=== PATIENT | male | born 1980 | race Hispanic/Latino ===

== ENCOUNTER 2024-11-11 13:59 | Inpatient (IN) | payer BC ==
[~2024-11-11 13:59] MED LIST: Iopamidol-370 76% 500 ML MDV (1 ML CHARGE) ONE
[2024-11-11] MEDS ORDERED: Ondansetron PF 4 MG/2 ML Vial ONE (14:39)
[2024-11-11] MEDS ORDERED: Pantoprazole 40 MG VIAL ONE (14:39)
[2024-11-11] MEDS ORDERED: Morphine 10 MG/ML VIAL ONE (14:39)
[2024-11-11 14:56] LABS: #Basophils 0.06 10x3/uL (0.0-0.2); %Basophils 0.4 % (0.0-1.0); %Eosinophils 0.7 % (0.0-10.0); %Lymphocytes 12.4 % (21.0-51.0); %Monocytes 8.4 % (0.0-10.0); %Neutrophils 76.4 % (42.0-75.0); Hematocrit 43.3 % (42.0-52.0); Mean Corpuscular HGB CONC 34.6 g/dL (32.0-36.0); Mean Corpuscular Hemoglobin 29.4 pg (27.0-31.0); Mean Corpuscular Volume 84.9 fL (78.0-98.0); Mean Platelet Volume 11.6 fL (7.4-10.4); Platelet Count 348 10x3/uL (130-400); RBC Distribution Width 12.7 % (11.5-14.5)
[2024-11-11 15:14] LABS: ALT (SGPT) 63 U/L (Less than 45); AST (SGOT) 32 U/L (11-34); Albumin 2.9 g/dL (3.1-4.5); Alkaline Phosphatase 101 U/L (40-110); Anion Gap 21 mmol/L (10-20); BUN (Urea Nitrogen) 81 mg/dL (8.9-20.6); Bilirubin, Total 1.1 mg/dL (0.3-1.2); Calc. Creatinine Clearance 0 mL/min (70-130); Calcium 8.6 mg/dL (7.8-10.44); Carbon Dioxide 26 mmol/L (22-29); Chloride 86 mmol/L (98-107); Estimated GFR 15; Globulin 4.8 g/dL (2.4-3.5); Glucose 145 mg/dL (70-105); Lipase 81 U/L (8-78); Protein, Total 7.7 g/dL (6.0-8.3); Sodium 130 mmol/L (136-145)
[2024-11-11 15:22] LABS: Troponin I 0.019 ng/mL (< 0.028)
[2024-11-11] MEDS ORDERED: traMADol HCl 50 MG TAB PO PRN (16:05)
[2024-11-11] MEDS ORDERED: Sodium Chloride 0.9% 100 ML ONE (16:09)
[2024-11-11] MEDS ORDERED: Piperacillin/Tazobactam 4.5 GM VIAL ONE (16:09)
[2024-11-11] MEDS ORDERED: Benzocaine 20% Spray 60 ML CAN ONE (16:42)
[2024-11-11] MEDS: Lactated Ringer's 1,000 ML IV SCH (18:45)
[2024-11-11] MEDS: Acetaminophen 325 MG TAB PO SCH (18:45)
[2024-11-11] MEDS: Sodium Chloride 0.9% 1,000 ML IV SCH (18:45)
[2024-11-11] MEDS: Morphine 2 MG/ML VIAL SLOW IVP PRN (20:31)
[2024-11-11] MEDS: Potassium Chloride 20 MEQ in Premix 1 BAG IVPB SCH (20:32)
[2024-11-11] MEDS: traMADol HCl 50 MG TAB PO SCH (20:33)
[2024-11-11 22:34] VITALS: BMI 39.9
[2024-11-12 05:12] LABS: #Basophils 0.05 10x3/uL (0.0-0.2); %Basophils 0.4 % (0.0-1.0); %Eosinophils 1.3 % (0.0-10.0); %Lymphocytes 17.2 % (21.0-51.0); %Monocytes 8.6 % (0.0-10.0); %Neutrophils 71.7 % (42.0-75.0); Hemoglobin 13.1 g/dL (14.0-18.0); Mean Corpuscular HGB CONC 34.5 g/dL (32.0-36.0); Mean Corpuscular Hemoglobin 30.3 pg (27.0-31.0); Mean Platelet Volume 11.8 fL (7.4-10.4); Platelet Count 300 10x3/uL (130-400); RBC Distribution Width 13.2 % (11.5-14.5); Red Blood Cell (RBC) Count 4.32 mill/uL (4.70-6.10)
[2024-11-12 05:25] LABS: Phosphorus 4.4 mg/dL (2.5-4.5)
[2024-11-12 05:28] LABS: Anion Gap 15 mmol/L (10-20); BUN (Urea Nitrogen) 71 mg/dL (8.9-20.6); Calc. Creatinine Clearance 49 mL/min (70-130); Calcium 8.3 mg/dL (7.8-10.44); Carbon Dioxide 28 mmol/L (22-29); Chloride 98 mmol/L (98-107); Estimated GFR 22; Glucose 92 mg/dL (70-105); Magnesium 2.1 mg/dL (1.6-2.6); Potassium 3.2 mmol/L (3.5-5.1); Sodium 138 mmol/L (136-145)
[2024-11-12] MEDS: Potassium Chloride 20 MEQ in Premix 1 BAG IVPB SCH (08:15)
[2024-11-12] MEDS: Benzocaine 20% Spray 60 ML CAN PO SCH (16:56)
[2024-11-12] MEDS ORDERED: Benzocaine/Menthol 1 LOZ LOZ PO PRN (17:27)
[2024-11-12] MEDS ORDERED: Phenol 177 ML BOT PO PRN (20:20)
[2024-11-13] MEDS ORDERED: MD-Gastroview 120 ML BOT ONE ×2 (09:54→10:28)
[2024-11-13] MEDS: Ondansetron PF 4 MG/2 ML Vial IVP PRN (15:31)
[2024-11-14 01:28] LABS: #Basophils 0.05 10x3/uL (0.0-0.2); #Eosinophils Less than 0.03 10x3/uL (0.0-0.7); %Basophils 0.2 % (0.0-1.0); %Eosinophils 0.1 % (0.0-10.0); %Lymphocytes 5.5 % (21.0-51.0); %Neutrophils 87.6 % (42.0-75.0); Hematocrit 42.9 % (42.0-52.0); Hemoglobin 14.2 g/dL (14.0-18.0); Mean Corpuscular HGB CONC 33.1 g/dL (32.0-36.0); Mean Corpuscular Hemoglobin 29.5 pg (27.0-31.0); Mean Corpuscular Volume 89.2 fL (78.0-98.0); Mean Platelet Volume 11.4 fL (7.4-10.4); Platelet Count 328 10x3/uL (130-400); RBC Distribution Width 13.2 % (11.5-14.5); Red Blood Cell (RBC) Count 4.81 mill/uL (4.70-6.10)
[2024-11-14 01:37] LABS: Actual Bicarbonate (HCO3v) 29.6 mEq/L (22-28); Analyzer IN Cardio ER; Base Excess 8.1 mEq/L (-2.0 to +3.0); Calcium, Ionized (venous) 1.02 mmol/L (1.16-1.32); Chloride (VBG) 101 mmol/L (98-106); Hematocrit-VBG 44 % (42.0-52.0); Hemoglobin (Hb) 14.9 g/dL (13.2-17.3); Potassium (VBG) 3.25 mmol/L (3.70-5.30); Sodium 148 mmol/L (133-146); pH (venous) 7.587 (7.32-7.43)
[2024-11-14 01:46] LABS: ALT (SGPT) 35 U/L (Less than 45); AST (SGOT) 23 U/L (11-34); Albumin 2.9 g/dL (3.1-4.5); Alkaline Phosphatase 88 U/L (40-110); Anion Gap 23 mmol/L (10-20); BUN (Urea Nitrogen) 36 mg/dL (8.9-20.6); Bilirubin, Total 0.7 mg/dL (0.3-1.2); Calc. Creatinine Clearance 85 mL/min (70-130); Calcium 9.1 mg/dL (7.8-10.44); Carbon Dioxide 29 mmol/L (22-29); Chloride 100 mmol/L (98-107); Estimated GFR 43; Globulin 4.7 g/dL (2.4-3.5); Glucose 103 mg/dL (70-105); Lactic Acid 0.77 mmol/L (0.50-2.20); Magnesium 1.9 mg/dL (1.6-2.6); Potassium 3.1 mmol/L (3.5-5.1); Protein, Total 7.6 g/dL (6.0-8.3); Sodium 149 mmol/L (136-145)
[2024-11-14] MEDS: Potassium Chloride 20 MEQ in Premix 1 BAG IVPB SCH (02:46)
[2024-11-14] MEDS: Piperacillin/Tazobactam 3.375 GM in Sodium Chloride 0.9% 100 ML IVPB SCH ×2 (02:46→06:15)
[2024-11-14] MEDS: Metoprolol Tartrate 5 MG (5 mL) VIAL IVP SCH (09:08)
[2024-11-14] MEDS: Potassium Chloride 20 MEQ in Lactated Ringer's 1,000 ML IV SCH (09:08)
[2024-11-14] MEDS ORDERED: Heparin 10,000 UNITS/ 10 ML VIAL SLOW IVP SCH (09:15)
[2024-11-14] MEDS ORDERED: Heparin 25,000 units/D5W 500 ML IVPB SCH (09:15)
[2024-11-14] MEDS: Enoxaparin 40 MG (0.4 mL) SYRINGE SC SCH (10:12)
[2024-11-14] MEDS ORDERED: fentaNYL PF 100 MCG/2 ML SYRINGE ONE (12:27)
[2024-11-14] MEDS ORDERED: PROPOFOL 20 ML ONE (12:27)
[2024-11-14] MEDS ORDERED: Midazolam HCl 2 mg/2 ml Vial ONE ×2 (12:28→12:32)
[2024-11-14] MEDS ORDERED: Rocuronium Bromide 10 MG/ML (10ML VIAL) ONE (12:29)
[2024-11-14] MEDS ORDERED: SUCCINYLCHOLINE/SOD CL,ISO/PF 200 MG/10 ML SYRINGE FS ONE (12:29)
[2024-11-14] MEDS ORDERED: Lidocaine 1% PF 5 ML VIAL ONE (12:30)
[2024-11-14] MEDS ORDERED: Ondansetron PF 4 MG/2 ML Vial ONE (12:53)
[2024-11-14] MEDS ORDERED: Dexamethasone 20 MG/5 ML VIAL ONE (12:53)
[2024-11-14] MEDS ORDERED: PHENYLEPHRINE-NS 100 MCG/ML 10 ML SYRINGE ONE (13:00)
[2024-11-14] MEDS ORDERED: Bupivacaine PF 0.5% 30 ML VIAL ONE (13:19)
[2024-11-14] MEDS ORDERED: EPINEPHrine 1 MG/ML VIAL ONE (13:19)
[2024-11-14] MEDS ORDERED: Iopamidol 370 76% 100 ML VIAL ONE (13:46)
[2024-11-14] MEDS ORDERED: HYDROmorphone 2 MG/ML VIAL SLOW IVP PRN (14:08)
[2024-11-14] MEDS ORDERED: Promethazine HCl 25 MG/ML VIAL IM PRN (14:08)
[2024-11-14] MEDS ORDERED: Ondansetron HCl/PF 4 MG/2 ML Vial IVP PRN (14:08)
[2024-11-14] MEDS ORDERED: SUGAMMADEX SODIUM 200 MG/2 ML VIAL ONE (14:10)
[2024-11-14] MEDS ORDERED: Metoprolol Tartrate 5 MG (5 mL) VIAL ONE (14:47)
[2024-11-14] MEDS ORDERED: Piperacillin/Tazobactam 3.375 GM VIAL ONE (14:54)
[2024-11-14] MEDS ORDERED: Sodium Chloride 0.9% 100 ML ONE (14:55)
[2024-11-14 18:35] LABS: Hematocrit 38.7 % (42.0-52.0); Hemoglobin 12.6 g/dL (14.0-18.0); Platelet Count 268 10x3/uL (130-400)
[2024-11-14] MEDS: Morphine 4 MG/ML VIAL SLOW IVP PRN (20:27)
[2024-11-14] MEDS: Enoxaparin 120 MG/0.8 ML SYRINGE SC SCH (20:27)
[2024-11-15 04:36] LABS: #Basophils 0.05 10x3/uL (0.0-0.2); %Basophils 0.3 % (0.0-1.0); %Eosinophils 0.2 % (0.0-10.0); %Lymphocytes 10.6 % (21.0-51.0); %Monocytes 6.7 % (0.0-10.0); %Neutrophils 81.5 % (42.0-75.0); Hematocrit 39.7 % (42.0-52.0); Hemoglobin 12.4 g/dL (14.0-18.0); Mean Corpuscular HGB CONC 31.2 g/dL (32.0-36.0); Mean Corpuscular Hemoglobin 29.7 pg (27.0-31.0); Mean Corpuscular Volume 95.2 fL (78.0-98.0); Mean Platelet Volume 11.1 fL (7.4-10.4); Platelet Count 274 10x3/uL (130-400); Red Blood Cell (RBC) Count 4.17 mill/uL (4.70-6.10)
[2024-11-15 05:40] LABS: Anion Gap 18 mmol/L (10-20); BUN (Urea Nitrogen) 31 mg/dL (8.9-20.6); Calc. Creatinine Clearance 85 mL/min (70-130); Calcium 7.7 mg/dL (7.8-10.44); Carbon Dioxide 32 mmol/L (22-29); Chloride 111 mmol/L (98-107); Estimated GFR 45; Glucose 90 mg/dL (70-105); Magnesium 1.9 mg/dL (1.6-2.6); Potassium 3.7 mmol/L (3.5-5.1); Sodium 157 mmol/L (136-145)
[2024-11-15] MEDS ORDERED: CEFAZOLIN 2 GM in Sodium Chloride 0.9% 100 ML IVPB SCH (09:00)
[2024-11-15] MEDS: 1/2 NS w/Potassium 20 mEq 1,000 ML IV SCH (09:52)
[2024-11-15] MEDS ORDERED: Bupivacaine 0.25% HCL 30 ML VIAL ONE (11:33)
[2024-11-15] MEDS ORDERED: EPINEPHrine 1 MG/ML VIAL ONE (11:33)
[2024-11-15 11:53] LABS: Anion Gap 19 mmol/L (10-20); BUN (Urea Nitrogen) 26 mg/dL (8.9-20.6); Calc. Creatinine Clearance 104 mL/min (70-130); Calcium 7.9 mg/dL (7.8-10.44); Carbon Dioxide 29 mmol/L (22-29); Chloride 112 mmol/L (98-107); Estimated GFR 57; Glucose 89 mg/dL (70-105); Potassium 3.7 mmol/L (3.5-5.1); Sodium 156 mmol/L (136-145)
[2024-11-15 14:29] VITALS: BMI 38.5
[2024-11-15] MEDS: Dextrose 5% in Water 1,000 ML IV SCH (15:07)
[2024-11-15] MEDS: Enoxaparin 120 MG/0.8 ML SYRINGE SC SCH (20:42)
[2024-11-15 21:58] LABS: Sodium 147 mmol/L (136-145)
[2024-11-16 05:11] LABS: #Basophils 0.05 10x3/uL (0.0-0.2); %Basophils 0.5 % (0.0-1.0); %Eosinophils 2.6 % (0.0-10.0); %Lymphocytes 19.3 % (21.0-51.0); %Neutrophils 70.1 % (42.0-75.0); Hematocrit 37.3 % (42.0-52.0); Hemoglobin 11.8 g/dL (14.0-18.0); Mean Corpuscular HGB CONC 31.6 g/dL (32.0-36.0); Mean Corpuscular Hemoglobin 29.6 pg (27.0-31.0); Mean Corpuscular Volume 93.7 fL (78.0-98.0); Mean Platelet Volume 11.6 fL (7.4-10.4); Platelet Count 242 10x3/uL (130-400); RBC Distribution Width 13.7 % (11.5-14.5); Red Blood Cell (RBC) Count 3.98 mill/uL (4.70-6.10)
[2024-11-16 05:21] LABS: Anion Gap 15 mmol/L (10-20); BUN (Urea Nitrogen) 22 mg/dL (8.9-20.6); Calc. Creatinine Clearance 129 mL/min (70-130); Carbon Dioxide 26 mmol/L (22-29); Chloride 108 mmol/L (98-107); Estimated GFR 74; Glucose 96 mg/dL (70-105); Potassium 3.5 mmol/L (3.5-5.1); Sodium 145 mmol/L (136-145)
[2024-11-16] MEDS ORDERED: EPINEPHrine 1 MG/ML VIAL ONE (07:19)
[2024-11-16] MEDS ORDERED: Bupivacaine PF 0.5% 30 ML VIAL ONE (07:20)
[2024-11-16] MEDS ORDERED: fentaNYL PF 100 MCG/2 ML SYRINGE ONE (09:09)
[2024-11-16] MEDS ORDERED: PROPOFOL 40 ML ONE (09:10)
[2024-11-16] MEDS ORDERED: Ondansetron HCl/PF 4 MG/2 ML Vial IVP PRN (09:13)
[2024-11-16] MEDS ORDERED: HYDROmorphone 2 MG/ML VIAL SLOW IVP PRN (09:13)
[2024-11-16] MEDS ORDERED: Promethazine HCl 25 MG/ML VIAL IM PRN (09:13)
[2024-11-16] MEDS ORDERED: Rocuronium Bromide 10 MG/ML (10ML VIAL) ONE (09:14)
[2024-11-16] MEDS ORDERED: Ondansetron PF 4 MG/2 ML Vial ONE ×2 (09:14→10:07)
[2024-11-16] MEDS ORDERED: Dexamethasone 4 mg/ml Vial ONE ×2 (09:14→10:07)
[2024-11-16] MEDS ORDERED: Esmolol 100 MG/10 ML VIAL ONE (09:23)
[2024-11-16] MEDS ORDERED: SUGAMMADEX SODIUM 200 MG/2 ML VIAL ONE (09:35)
[2024-11-16] MEDS ORDERED: PHENYLEPHRINE-NS 100 MCG/ML 10 ML SYRINGE ONE (10:03)
[2024-11-16] MEDS ORDERED: Lidocaine 2% PF 5 ML VIAL ONE (10:03)
[2024-11-16] MEDS ORDERED: CEFAZOLIN 1 GM VIAL ONE (10:03)
[2024-11-16] MEDS ORDERED: fentaNYL 50 mcg/mL 1 mL Vial ONE ×2 (11:43→13:18)
[2024-11-16] MEDS ORDERED: Phenol 177 ML BOT ONE (12:27)
[2024-11-16] MEDS ORDERED: Metoprolol Tartrate 5 MG (5 mL) VIAL ONE (12:40)
[2024-11-16] MEDS ORDERED: HYDROmorphone 0.5 MG/0.5 ML SYRINGE ONE (13:21)
[2024-11-16] MEDS: traMADol HCl 50 MG TAB PO SCH (14:18)
[2024-11-16] MEDS: Acetaminophen 500 MG TAB PO SCH ×2 (14:18→16:08)
[2024-11-16 15:18] LABS: Sodium 145 mmol/L (136-145)
[2024-11-16] MEDS ORDERED: hydrALAZINE 20 MG/ML VIAL SLOW IVP PRN (15:37)
[2024-11-16] MEDS: Amlodipine 5 MG TAB PO SCH (16:09)
[2024-11-16] MEDS ORDERED: CEFAZOLIN 2 GM in Sodium Chloride 0.9% 100 ML IVPB SCH (17:00)
[2024-11-16 17:21] LABS: INR-International Normal Ratio 1.1; PTT 28.6 sec (22.9-36.1); Prothrombin Time 14.5 sec (12.0-14.7)
[2024-11-16 17:23] LABS: D-Dimer Test 2.06 mcg/mL (0.27-0.43)
[2024-11-16] MEDS ORDERED: traMADol HCl 50 MG TAB PO PRN (20:00)
[2024-11-16] MEDS: Methylcellulose 500 MG TAB PO SCH (20:58)
[2024-11-16] MEDS: Enoxaparin 40 MG (0.4 mL) SYRINGE SC SCH (20:58)
[2024-11-17 08:19] LABS: Anion Gap 13 mmol/L (10-20); BUN (Urea Nitrogen) 18 mg/dL (8.9-20.6); Calc. Creatinine Clearance 144 mL/min (70-130); Calcium 7.6 mg/dL (7.8-10.44); Carbon Dioxide 24 mmol/L (22-29); Chloride 110 mmol/L (98-107); Estimated GFR 84; Glucose 99 mg/dL (70-105); Potassium 3.6 mmol/L (3.5-5.1); Sodium 143 mmol/L (136-145)
[2024-11-17] MEDS: Amlodipine 5 MG TAB PO SCH (08:54)
[2024-11-17] MEDS: Polyethylene Glycol 3350 17 GM Packet PO SCH (08:55)
[2024-11-17 12:58] VITALS: TEMP 99.1
[2024-11-17 15:49] VITALS: BP 147/94
[2024-11-19 12:56] LABS: Cardiolipin IgA Ab 5.7 APL-U/mL (<14 Negative); Cardiolipin IgG Ab 2.8 GPL-U/mL (<10 Negative); EliA APS New Method **** NEW METHOD ****
== END 2024-11-17 15:49 | disposition home or self-care (01) | DRG 329 ==
LOC: ERS 13:59 → SURG A 16:44 → 2NO 11-14 02:02 → SURG A 11-16 12:24 → SURG B 11-16 14:42
PROVIDERS: ADMIT Surgery; ATTEND Surgery
PROC: 0DQB8ZZ Repair Ileum, Via Natural or Artificial Opening Endoscopic (ICD-10-PCS; 2024-11-14)
PROC: 8E0W4CZ Robotic Assisted Procedure of Trunk Region, Percutaneous Endoscopic Approach (ICD-10-PCS; 2024-11-14)
PROC: 0DH67UZ Insertion of Feeding Device into Stomach, Via Natural or Artificial Opening (ICD-10-PCS; 2024-11-14)
PROC: 0YU54JZ Supplement Right Inguinal Region with Synthetic Substitute, Percutaneous Endoscopic Approach (ICD-10-PCS; principal; 2024-11-17)
DX: K40.30 Unilateral inguinal hernia, with obstruction, without gangrene, not specified as recurrent (principal); I26.99 Other pulmonary embolism without acute cor pulmonale; E87.1 Hypo-osmolality and hyponatremia; K56.609 Unspecified intestinal obstruction, unspecified as to partial versus complete obstruction; N17.9 Acute kidney failure, unspecified; K91.71 Accidental puncture and laceration of a digestive system organ or structure during a digestive system procedure; E66.01 Morbid (severe) obesity due to excess calories; D72.829 Elevated white blood cell count, unspecified; R00.0 Tachycardia, unspecified; E87.6 Hypokalemia; Z68.38 Body mass index [BMI] 38.0-38.9, adult; Z79.899 Other long term (current) drug therapy
CPT/HCPCS: 36415; 71045; 71275; 74018; 74177; 74250; 80048; 80053; 82805; 83090; 83605; 83690; 83735; 84100; 84443; 84484; 85025; 85300; 85303; 85306; 85307; 85379; 85598; 85610; 85730; 86147; 87040; 93005; 93010; 93970; 96374; 96375; A4314; C1781; J0171; J0665; J0690; J1100; J1171; J1644; J1650; J2250; J2270; J2272; J2405; J2470; J2543; J2704; J3010; J3480; J7070; J7120; Q9963; Q9967; S2900